=== PATIENT | female | born 1995 | race Two or more races ===

== ENCOUNTER 2021-06-14 18:41 | Emergency (ER) | payer OTHER ==
[~2021-06-14] VITALS: Ht 154.9 cm; Wt 89.8 kg
[2021-06-14] MEDS ORDERED: traMADol HCL 50 MG TAB PO ONE (20:30)
[2021-06-14 22:40] VITALS: BP 109/67
== END 2021-06-14 22:40 | disposition home or self-care (01) ==
LOC: ER 18:41
DX: S96.911A Strain of unspecified muscle and tendon at ankle and foot level, right foot, initial encounter (principal); M54.50 Low back pain, unspecified; E11.9 Type 2 diabetes mellitus without complications; W18.39XA Other fall on same level, initial encounter; Y93.89 Activity, other specified; Y92.89 Other specified places as the place of occurrence of the external cause; Y99.8 Other external cause status
CPT/HCPCS: 72110; 73610